=== PATIENT | male | born 1950 | race Caucasian/White ===

== ENCOUNTER 2024-08-26 12:55 | Inpatient (IN) ==
[2024-08-26] MEDS: Lactated Ringers 1000 ml BAG 1,000 ML IV ONE ×4 (13:02→16:38)
[2024-08-26 13:26] LABS: ABS Basophils 0.1 10^3/uL (0.0-0.1); ABS Eosinophils 0.4 10^3/uL (0.0-0.5); ABS Lymphocytes 0.9 10^3/uL (1.0-4.8); ABS Monocytes 0.5 10^3/uL (0.0-1.1); ABS Neutrophils 7.8 10^3/uL (1.5-7.6); ABS Nucleated RBC 0.01 10^3/ul; Hematocrit 28.9 % (38-53); Hemoglobin 9.1 g/dL (13.2-16.3); Mean Corpuscular Hemoglobin 27.1 pg (27-33); Mean Corpuscular Hgb Conc 31.6 g/dL (31-36); Mean Corpuscular Volume 85.8 fL (80-97); Mean Platelet Volume 8.5 fL (7.5-11.2); Nucleated Red Blood Cells % 0.1 %/100WBC (0.0-0.8); Platelet Count 318 10^3/uL (150-450); Red Blood Count 3.36 10^6/uL (4.06-5.63); White Blood Count 9.6 10^3/uL (3.6-10.2)
[2024-08-26 13:44] LABS: Urine Benzodiazepine Screen None Detected (None Detect); Urine Cannabinoids Screen None Detected (None Detect); Urine Opiates Screen None Detected (None Detect)
[2024-08-26 13:47] LABS: INR 1.11 (0.85-1.14)
[2024-08-26 13:50] LABS: High Sens Troponin Baseline 9 pg/mL (<20)
[2024-08-26 14:10] LABS: ALT 12 U/L (7-52); AST 12 U/L (13-39); Albumin 3.8 g/dL (3.2-5.2); Alcohol, S < 13 mg/dL (<13); Alkaline Phosphatase 111 U/L (35-149); Anion Gap 12 mmol/L (2-16); Blood Urea Nitrogen 55 mg/dL (6-24); C Reactive Protein 22.47 mg/L (<8.01); CO2 Carbon Dioxide 26 mmol/L (22-32); Calcium 9.5 mg/dL (8.6-10.3); Chloride 104 mmol/L (101-111); Creatinine, Serum 3.64 mg/dL (0.67-1.17); Globulin 3.9 g/dL (2-4); Glucose 185 mg/dL (70-100); Magnesium 2.3 mg/dL (1.9-2.7); Potassium 4.7 mmol/L (3.5-5.0); Sodium 142 mmol/L (135-145); Total Bilirubin 0.6 mg/dL (0.2-1.0); Total Protein 7.7 g/dL (6.4-8.9); eGFR CKD-EPI 17.1 (>60)
[2024-08-26] MEDS: Piperacillin/Tazobac 3.375 BAG 3.375 GM/100 ML BAG IV ONE (14:13)
[2024-08-26 14:17] LABS: Urine Appearance Extra Turbid; Urine Bilirubin Negative (Negative); Urine Blood 3+ (Negative); Urine Glucose Negative (Negative); Urine Ketones Negative (Negative); Urine Nitrite Negative (Negative); Urine Protein 2+ (>=100 mg/dL) (Negative); Urine Specific Gravity 1.018 (1.002-1.030); Urine Urobilinogen Negative (Negative); Urine pH 5.5 (5.0-8.0)
[2024-08-26 14:18] LABS: Urine Bacteria Absent /HPF (Absent); Urine Red Blood Cell Absent /HPF (0-Trace); Urine White Blood Cell Absent /HPF (0-Trace)
[2024-08-26 14:19] LABS: Urine Color Yellow
[2024-08-26] MEDS: Vancomycin 1,500 MG in NS 0.9% 250 ml 250 ML IVPB ONE (15:02)
[2024-08-26 15:44] LABS: High Sensitivity Troponin 1 Hr 10 pg/mL (<20)
[2024-08-26 15:57] LABS: Creatine Kinase 204 U/L (10-223)
[2024-08-26] MEDS ORDERED: Dextrose 50% Syringe 50 ml 25 GM/50 ML SYRINGE IV PUSH PRN (16:59)
[2024-08-26] MEDS ORDERED: Zosyn per Pharmacy NOTE FOLLOW UP SCH (17:00)
[2024-08-26] MEDS: ZOSYN 3.375 GM Q8H per EXTENDED INFUSION IV SCH (18:17)
[2024-08-26] MEDS: Lactated Ringers 1000 ml BAG 1,000 ML IV SCH (18:18)
[2024-08-26] MEDS: Heparin 5000 UNITS/ML 1 mL VIAL SUBCUT SCH (22:00)
[2024-08-27 00:26] LABS: Hematocrit 28.8 % (38-53); Hemoglobin 9.2 g/dL (13.2-16.3); Mean Corpuscular Hgb Conc 31.8 g/dL (31-36); Mean Platelet Volume 8.3 fL (7.5-11.2); Platelet Count 242 10^3/uL (150-450); Red Blood Count 3.39 10^6/uL (4.06-5.63); Red Cell Distribution Width 15.9 % (12-17); White Blood Count 10.2 10^3/uL (3.6-10.2)
[2024-08-27] MEDS: Levothyroxine 100 MCG/5 ML VIAL IV SCH (05:38)
[2024-08-27] MEDS: ZOSYN 3.375 GM Q12H per EXTENDED INFUSION IV SCH (07:27)
[2024-08-27 13:40] LABS: Albumin 2.9 g/dL (3.2-5.2); Calcium 8.4 mg/dL (8.6-10.3); Creatinine, Serum 2.46 mg/dL (0.67-1.17); Globulin 2.9 g/dL (2-4); Potassium 4.3 mmol/L (3.5-5.0); Total Bilirubin 0.5 mg/dL (0.2-1.0); Total Protein 5.8 g/dL (6.4-8.9); eGFR CKD-EPI 27.3 (>60)
[2024-08-27] MEDS: ZOSYN 3.375 GM Q8H per EXTENDED INFUSION IV SCH (17:24)
[2024-08-28 06:46] LABS: ABS Eosinophils 0.4 10^3/uL (0.0-0.5); ABS Lymphocytes 0.7 10^3/uL (1.0-4.8); ABS Monocytes 0.4 10^3/uL (0.0-1.1); ABS Neutrophils 3.8 10^3/uL (1.5-7.6); Eosinophil % 7.6 %; Hematocrit 26.5 % (38-53); Hemoglobin 8.3 g/dL (13.2-16.3); Lymphocyte % 13.8 %; Mean Corpuscular Hemoglobin 27.4 pg (27-33); Mean Corpuscular Hgb Conc 31.3 g/dL (31-36); Mean Corpuscular Volume 87.4 fL (80-97); Mean Platelet Volume 8.2 fL (7.5-11.2); Platelet Count 196 10^3/uL (150-450); Red Blood Count 3.03 10^6/uL (4.06-5.63); Red Cell Distribution Width 16.5 % (12-17); White Blood Count 5.3 10^3/uL (3.6-10.2)
[2024-08-28 06:57] LABS: Calcium 8.6 mg/dL (8.6-10.3); Creatinine, Serum 1.85 mg/dL (0.67-1.17); Magnesium 1.7 mg/dL (1.9-2.7); eGFR CKD-EPI 38.5 (>60)
[2024-08-28] MEDS: Magnesium Sulfate 2 gm BAG 2 GM/50 ML BAG IVPB ONE (11:35)
[2024-08-28] MEDS: Magnesium Sulfate IV 1GM/100ML 1 GM/100 ML BAG IV ONE (12:52)
[2024-08-28 13:34] LABS: TSH Ultra Thyroid Stim Horm 1.33 mcIU/mL (0.34-5.60)
[2024-08-29 06:46] LABS: ABS Eosinophils 0.4 10^3/uL (0.0-0.5); ABS Lymphocytes 0.8 10^3/uL (1.0-4.8); ABS Monocytes 0.4 10^3/uL (0.0-1.1); ABS Neutrophils 3.9 10^3/uL (1.5-7.6); ABS Nucleated RBC 0.01 10^3/ul; Eosinophil % 6.9 %; Hemoglobin 8.2 g/dL (13.2-16.3); Lymphocyte % 14.6 %; Mean Corpuscular Hemoglobin 27.5 pg (27-33); Mean Corpuscular Hgb Conc 32.6 g/dL (31-36); Mean Corpuscular Volume 84.2 fL (80-97); Mean Platelet Volume 8.4 fL (7.5-11.2); Nucleated Red Blood Cells % 0.1 %/100WBC (0.0-0.8); Platelet Count 198 10^3/uL (150-450); Red Blood Count 2.97 10^6/uL (4.06-5.63); Red Cell Distribution Width 16.2 % (12-17); White Blood Count 5.5 10^3/uL (3.6-10.2)
[2024-08-29 07:27] LABS: Calcium 8.1 mg/dL (8.6-10.3); Creatinine, Serum 1.49 mg/dL (0.67-1.17); eGFR CKD-EPI 49.9 (>60)
[2024-08-29] MEDS: Aspirin EC 81 mg TAB.EC (enteric coated) PO SCH (09:36)
[2024-08-30 08:02] LABS: ABS Eosinophils 0.3 10^3/uL (0.0-0.5); ABS Lymphocytes 0.8 10^3/uL (1.0-4.8); ABS Monocytes 0.4 10^3/uL (0.0-1.1); ABS Neutrophils 3.5 10^3/uL (1.5-7.6); Eosinophil % 6.7 %; Hematocrit 25.8 % (38-53); Hemoglobin 8.3 g/dL (13.2-16.3); Lymphocyte % 16.5 %; Mean Corpuscular Hemoglobin 27.5 pg (27-33); Mean Corpuscular Hgb Conc 32.2 g/dL (31-36); Mean Corpuscular Volume 85.5 fL (80-97); Mean Platelet Volume 8.5 fL (7.5-11.2); Nucleated Red Blood Cells % 0.1 %/100WBC (0.0-0.8); Platelet Count 191 10^3/uL (150-450); Red Blood Count 3.02 10^6/uL (4.06-5.63); Red Cell Distribution Width 16.2 % (12-17); White Blood Count 5.1 10^3/uL (3.6-10.2)
[2024-08-30 08:30] LABS: Calcium 8.7 mg/dL (8.6-10.3); Creatinine, Serum 1.26 mg/dL (0.67-1.17); Potassium 3.9 mmol/L (3.5-5.0)
[2024-08-30 09:32] VITALS: BP 154/78
[2024-08-30] MEDS: Sulfamethox/Trimethoprim DS TAB 800/160 mg PO ONE (11:52)
== END 2024-08-30 12:56 | DRG 698 ==
LOC: ED 12:55 → EDHOLD 12:55 → SUATTDRO 15:41 → OBSVTOIN 15:41 → MEDTELE 21:03
PROVIDERS: ADMIT Internal Medicine; ATTEND Internal Medicine